=== PATIENT | female | born 1985 | race African-American/Black ===

== ENCOUNTER 2024-02-02 01:07 | Emergency (ER) | payer MEDICAID ==
[~2024-02-02] VITALS: Ht 154.9 cm; Wt 130.0 kg
[2024-02-02 01:24] VITALS: BP 130/86; PULSE 86; RESP 16; TEMP 98
[2024-02-02] MEDS ORDERED: TRAM50TA5 PO (05:39)
[2024-02-02 05:54] LABS: HCG,QUAL URINE NEGATIVE (NEGATIVE)
[2024-02-02 05:59] LABS: APPEARANCE,URINE HAZY (CLEAR); BILIRUBIN,URINE NEGATIVE (NEGATIVE); COLOR,URINE YELLOW (YELLOW); GLUCOSE, URINE (UA) NEGATIVE (NEGATIVE); KETONES,URINE NEGATIVE (NEGATIVE); LEUKOCYTE ESTERASE ,URINE SMALL (NEGATIVE); NITRATE,URINE NEGATIVE (NEGATIVE); OCCULT BLOOD,URINE NEGATIVE (NEGATIVE); PH,URINE 5.5 (5.0-8.0); PROTEIN,URINE 30-70 mg/dL (NEGATIVE); SPECIFIC GRAVITIY, URINE 1.034 (1.003-1.030)
[2024-02-02] MEDS: KETOROLAC TROMETHAMINE 30 MG/ML VIAL IM ONE (06:00)
[2024-02-02] MEDS: TraMADol HCL 50 MG TABLET PO ONE (06:00)
[2024-02-02 06:10] LABS: BACTERIA,URINE None Seen /HPF (None Seen); RBC,URINE None Seen /HPF (0-2); SQUAMOUS EPITHELIAL CELL,UR Few /LPF (None Seen); WBC,URINE 0-2 /HPF (0-5)
== END 2024-02-02 06:21 | disposition home or self-care (01) ==
LOC: EMS 01:07
DX: K01.1 Impacted teeth (principal); F41.9 Anxiety disorder, unspecified; I10 Essential (primary) hypertension; Z91.040 Latex allergy status
CPT/HCPCS: 99283; 81001; 84703; 96372; J1885